=== PATIENT | female | born 1975 | race American Indian/Alaskan Native ===

== ENCOUNTER 2020-10-01 15:57 | Inpatient (IN) | payer MEDICARE ==
--- NOTE | 2020-10-01 18:41 | Event Note ---
ED Screening Note ED Screening Note: pt presents for CP that radiates to the back that began 4 days ago +SOB +pleuritic pain +cough with mucus production +v/d no leg swelling no COVID 19 vaccine mother is positive for COVID PMHx SBO, arthritis no allergies to meds LNMP: currently non smoker This initial assessment/diagnostic orders/clinical plan/treatment(s) is/are subject to change based on patients health status, clinical progression and re- assessment by fellow clinical providers in the ED. Further treatment and workup at subsequent clinical providers discretion. Patient/guardian urged not to elope from the ED as their condition may be serious if not clinically assessed and managed. Initial orders include: labs, ekg, xr
[2020-10-01 18:43] LABS: Bacteria,Urine 1+ /HPF (Negative); Bilirubin,Urine NEG (Negative); Blood,Urine LG (Negative); Color,Urine Amber (Yellow); Hyaline Casts,Urine 1 /LPF; Mucus,Urine 3+ /HPF
--- NOTE | 2020-10-01 19:21 | XRay Report ---
CHEST PA AND LATERAL VIEWS INDICATION: cough, SOB, CP. COMPARISON: None. FINDINGS: Support devices: None. Heart: Within normal limits. Lungs/Pleura: There are mild patchy airspace opacities in the mid to lower lungs bilaterally. No pleu ral abnormality. IMPRESSION: 1. Mild bilateral airspace disease is concerning for viral pneumonia. Signer Name: Jevon Neff MD Signed: 10/01/2020 7:17 PM Workstation Name: [id number]
[2020-10-01 19:53] LABS: Basophils # (Auto) 0.1 K/mm3 (0.0-0.1); Eosinophils # (Auto) 0.1 K/mm3 (0.0-0.4); Eosinophils % (Auto) 1.6 % (0.0-4.3); Hematocrit 39.1 % (30.3-42.9); Hemoglobin 12.5 gm/dl (10.1-14.3); Lymphocytes # (Auto) 1.5 K/mm3 (1.2-5.4); Lymphocytes % (Auto) 24.8 % (13.4-35.0); Mean Corpuscular HGB Conc 32 % (30-34); Mean Corpuscular Volume 88 fl (79-97); Monocytes # (Auto) 0.6 K/mm3 (0.0-0.8); Monocytes % (Auto) 10.1 % (0.0-7.3); Platelet Count 395 K/mm3 (140-440); Red Blood Count 4.43 M/mm3 (3.65-5.03); Red Cell Distribution Width 14.8 % (13.2-15.2)
[2020-10-01 20:09] LABS: Alanine Aminotransferase 23 units/L (7-56); Albumin 3.7 g/dL (3.9-5); Blood Urea Nitrogen 8 mg/dL (7-17); Calcium 9.2 mg/dL (8.4-10.2); Hemolysis Index 5
[2020-10-01 20:28] LABS: BUN/Creatinine Ratio 13
--- NOTE | 2020-10-01 23:38 | Emergency Department Report ---
- General Chief Complaint: Dyspnea/Respdistress Stated Complaint: CHEST PAIN, GABY PUI?: No Time Seen by Provider: 10/01/20 18:38 Source: patient Mode of arrival: Ambulatory Limitations: No Limitations - History of Present Illness Initial Comments: 45-year-old -Algerian female presents emerged department complaining of a few day history of cough congestion and coryza with mucus. Production is feverish sensation and difficulty breathing off and on. She reports no hemoptysis no hematemesis no hematochezia but has had positive contact with the coronavirus in the family. MD Complaint: fever, rhinorrhea, nasal congestion -: Gradual Quality: dull Consistency: constant Improves With: nothing Worsens With: nothing Associated Symptoms: chills, rhinorrhea, nasal congestion, cough. denies: chest pain, shortness of breath, vomiting, diarrhea, dysuria, confusion, right sweats, weight loss, epistaxis Treatments Prior to Arrival: none - Related Data Previous Rx's Medication Instructions Recorded Last Taken Type Ondansetron [Zofran ODT TAB] 4 mg PO Q8HR #20 tab.rapdis 11/01/14 Unknown Rx oxyCODONE /ACETAMINOPHEN [Percocet 1 tab PO Q6HR PRN #20 tablet 11/01/14 Unknown Rx 5/325] Albuterol Mdi (or & Nicu Only) 1 puff IH Q4-6H PRN #1 inha 10/01/20 Unknown Rx [ProAir HFA Inhaler] Benzonatate [Tessalon Perles] 100 mg PO Q8HR #20 capsule 10/01/20 Unknown Rx Ketorolac [Toradol] 10 mg PO Q6H PRN #15 tablet 10/01/20 Unknown Rx Allergies Allergy/AdvReac Type Severity Reaction Status Date / Time No Known Allergies Allergy Verified 10/01/20 16:20 ED Review of Systems ROS: Stated complaint: CHEST PAIN, GABY Other details as noted in HPI Comment: All other systems reviewed and negative ED Past Medical Hx - Surgical History Additional Surgical History: GASTRIC BYPASS 2001. . BOWEL OBSTRUCTION 2004 - Social History Smoking Status: Never Smoker Substance Use Type: None - Medications Home Medications: Home Medications Medication Instructions Recorded Confirmed Last Taken Type Ondansetron [Zofran ODT TAB] 4 mg PO Q8HR #20 tab.rapdis 11/01/14 Unknown Rx oxyCODONE /ACETAMINOPHEN [Percocet 1 tab PO Q6HR PRN #20 tablet 11/01/14 Unknown Rx 5/325] Albuterol Mdi (or & Nicu Only) 1 puff IH Q4-6H PRN #1 inha 10/01/20 Unknown Rx [ProAir HFA Inhaler] Benzonatate [Tessalon Perles] 100 mg PO Q8HR #20 capsule 10/01/20 Unknown Rx Ketorolac [Toradol] 10 mg PO Q6H PRN #15 tablet 10/01/20 Unknown Rx ED Physical Exam - General Limitations: No Limitations General appearance: alert, in no apparent distress - Head Head exam: Present: atraumatic, normocephalic - Eye Eye exam: Present: normal appearance, PERRL Pupils: Present: normal accommodation - ENT ENT exam: Present: normal exam, normal orophraynx, mucous membranes moist, TM's normal bilaterally - Neck Neck exam: Present: normal inspection, full ROM - Respiratory Respiratory exam: Present: normal lung sounds bilaterally, rhonchi. Absent: respiratory distress, wheezes, rales, chest wall tenderness, accessory muscle use - Cardiovascular Cardiovascular Exam: Present: regular rate, normal rhythm. Absent: systolic murmur, diastolic murmur, rubs, gallop - GI/Abdominal GI/Abdominal exam: Present: soft, normal bowel sounds - Bi-manual exam: Absent: normal bi-manual exam, cervical motion tendernes - Extremities Exam Extremities exam: Present: normal inspection, full ROM, tenderness, normal capillary refill. Absent: pedal edema, joint swelling - Back Exam Back exam: Present: normal inspection. Absent: CVA tenderness (R), CVA tenderness (L) - Neurological Exam Neurological exam: Present: alert, oriented X3, CN II-XII intact, normal gait - Psychiatric Psychiatric exam: Present: normal affect, normal mood - Skin Skin exam: Present: warm, dry, intact, normal color. Absent: rash ED Course Vital Signs 10/01/20 10/02/20 16:19 02:46 Temperature 98.6 F Pulse Rate 96 H Respiratory 16 Rate Blood Pressure 93/74 [Right] O2 Sat by Pulse 99 90 Oximetry ED Medical Decision Making - Lab Data Result diagrams: 10/01/20 19:18 10/01/20 19:18 - Radiology Data Radiology results: report reviewed [facility] [address] [place] [address] XRay Report Signed Patient: GISELL DELACRUZ MR#: [id number] : 1975 Acct:[id number] Age/Sex: 45 / F ADM Date: 10/01/20 Loc: ED Attending Dr: Ordering Physician: ROCIO HERNANDEZ Date of Service: 10/01/20 Procedure(s): XR chest routine 2V Accession Number(s): [id number] cc: ROCIO HERNANDEZ Fluoro Time In Minutes: CHEST PA AND LATERAL VIEWS INDICATION: cough, SOB, CP. COMPARISON: None. FINDINGS: Support devices: None. Heart: Within normal limits. Lungs/Pleura: There are mild patchy airspace opacities in the mid to lower lungs bilaterally. No pleural abnormality. IMPRESSION: 1. Mild bilateral airspace disease is concerning for viral pneumonia. Signer Name: Jevon Neff MD Signed: 10/01/2020 7:17 PM Workstation Name: [id number] Transcribed By: JULIETA Dictated By: Jevon Neff MD Electronically Authenticated By: Jevon Neff MD Signed Date/Time: 10/01/201916 DD/ 16 TD/TT: - Medical Decision Making 45-year-old female patient presentation suspicious for COVID-19 infection patient requires admission for the symptoms current Covid symptoms including ta chycardia, chest pain, shortness of breath, exertional dyspnea and exertional hypoxemia with a saturation decreasing to 91%. Chest x-ray also bilateral pneumonia of what appears to be a viral nature differential diagnosis includes other viral causes of lower respiratory tract infection, pneumonia, less likely PE, pneumothorax, primary cardiovascular causes, bacterial sepsis, other severe metabolic/ischemic derangements. Will swab for COVID-19 placed in hands precautions and admit to medicine. Critical care attestation.: If time is entered above; I have spent that time in minutes in the direct care of this critically ill patient, excluding procedure time. ED Disposition Clinical Impression: Viral syndrome, Suspected COVID-19 virus infection, Cough, Viral pneumonia, Exertional dyspnea, Hypoxemia, Pneumonia Disposition: OP ADMIT IP TO THIS HOSP Is pt being admited?: Yes Does the pt Need Aspirin: No Condition: Stable Instructions: Bacterial Pneumonia (ED) Prescriptions: Albuterol Mdi (or & Nicu Only) [ProAir HFA Inhaler] 1 puff IH Q4-6H PRN #1 inha PRN Reason: Cough Benzonatate [Tessalon Perles] 100 mg PO Q8HR #20 capsule Ketorolac [Toradol] 10 mg PO Q6H PRN #15 tablet PRN Reason: Pain
[2020-10-01] MEDS ORDERED: dexAMETHasone 4 MG/ML VIAL IM ONE (23:45)
[2020-10-02] MEDS ORDERED: dexAMETHasone 4 MG/ML VIAL IM ONE (02:00)
[2020-10-02] MEDS ORDERED: ALBUTEROL 2.5 MG/3 ML NEBU IH PRN (05:45)
[2020-10-02] MEDS ORDERED: ACETAMINOPHEN 325 MG TAB PO PRN (05:45)
[2020-10-02] MEDS ORDERED: hydrALAZINE 20 MG/1 ML INJ IV PRN (05:47)
--- NOTE | 2020-10-02 05:52 | History and Physical Report ---
History of Present Illness Date of examination: 10/02/20 Date of admission: 10/02/20 03:13 Chief complaint: Dyspnea Cough History of present illness: 45-year-old -Ethiopian female with no significant past medical history was brought to the emergency room because of a few day history of cough , shortness of breath, congestion and coryza with mucus. Production is feverish sensation and difficulty breathing off and on. Patient has positive contact with the coronavirus in the family In the emergency room patient chest x-ray shows bilateral pneumonia .patient has exertional dyspnea and exertional hypoxemia with a saturation decreasing to 91%. Medications and Allergies Allergies Allergy/AdvReac Type Severity Reaction Status Date / Time No Known Allergies Allergy Verified 10/01/20 16:20 Home Medications Medication Instructions Recorded Confirmed Last Taken Type Ondansetron [Zofran ODT TAB] 4 mg PO Q8HR #20 tab.rapdis 11/01/14 Unknown Rx oxyCODONE /ACETAMINOPHEN [Percocet 1 tab PO Q6HR PRN #20 tablet 11/01/14 Unknown Rx 5/325] Albuterol Mdi (or & Nicu Only) 1 puff IH Q4-6H PRN #1 inha 10/01/20 Unknown Rx [ProAir HFA Inhaler] Benzonatate [Tessalon Perles] 100 mg PO Q8HR #20 capsule 10/01/20 Unknown Rx Ketorolac [Toradol] 10 mg PO Q6H PRN #15 tablet 10/01/20 Unknown Rx Active Meds: Active Medications Acetaminophen (Acetaminophen 325 Mg Tab) 650 mg PO Q4H PRN PRN Reason: Pain MILD(1-3)/Fever >100.5/COLUNGA Albuterol (Albuterol 2.5 Mg/3 Ml Nebu) 2.5 mg IH Q4HRT PRN PRN Reason: Shortness Of Breath Albuterol/Ipratropium (Ipratropium/Albuterol Sulfate 3 Ml Ampul.Neb) 1 ampul IH Q6HRT MARGARET Famotidine (Famotidine 20 Mg Tab) 20 mg PO BID MARGARET Ondansetron HCl (Ondansetron 4 Mg/2 Ml Inj) 4 mg IV Q8H PRN PRN Reason: Nausea And Vomiting Oxycodone/Acetaminophen (Oxycodone /Acetaminophen 5-325mg Tab) 1 tab PO Q6H PRN PRN Reason: Pain, Moderate (4-6) Sodium Chloride (Sodium Chloride 0.9% 10 Ml Flush Syringe) 10 ml IV BID MARGARET Sodium Chloride (Sodium Chloride 0.9% 10 Ml Flush Syringe) 10 ml IV PRN PRN PRN Reason: LINE FLUSH Review of Systems Cardiovascular: shortness of breath, dyspnea on exertion Respiratory: cough, shortness of breath, dyspnea on exertion Exam - Constitutional Vitals: Temp Pulse Resp BP Pulse Ox 98.6 F 96 H 16 93/74 90 10/01/20 16:19 10/01/20 16:19 10/01/20 16:19 10/01/20 16:19 10/02/20 02:46 General appearance: Present: no acute distress, well-nourished - EENT Eyes: Present: PERRL ENT: hearing intact, clear oral mucosa - Neck Neck: Present: supple, normal ROM - Respiratory Respiratory effort: normal Respiratory: bilateral: diminished - Cardiovascular Heart Sounds: Present: S1 & S2. Absent: rub, click - Extremities Extremities: pulses symmetrical, No edema Peripheral Pulses: within normal limits - Abdominal General gastrointestinal: Present: soft, non-tender, non-distended, normal bowel sounds Female genitourinary: Present: normal - Integumentary Integumentary: Present: clear, warm, dry - Musculoskeletal Musculoskeletal: gait normal, strength equal bilaterally - Psychiatric Psychiatric: appropriate mood/affect, intact judgment & insight - Neurologic Neurologic: CNII-XII intact, moves all extremities HEART Score - HEART Score Troponin: Troponin T < 0.010 ng/mL (0.00-0.029) 10/01/20 19:18 Results - Labs CBC & Chem 7: 10/01/20 19:18 10/01/20 19:18 Labs: Laboratory Last Values WBC 6.0 K/mm3 (4.5-11.0) 10/01/20 19:18 RBC 4.43 M/mm3 (3.65-5.03) 10/01/20 19:18 Hgb 12.5 gm/dl (10.1-14.3) 10/01/20 19:18 Hct 39.1 % (30.3-42.9) 10/01/20 19:18 MCV 88 fl (79-97) 10/01/20 19:18 MCH 28 pg (28-32) 10/01/20 19:18 MCHC 32 % (30-34) 10/01/20 19:18 RDW 14.8 % (13.2-15.2) 10/01/20 19:18 Plt Count 395 K/mm3 (140-440) 10/01/20 19:18 Lymph % (Auto) 24.8 % (13.4-35.0) 10/01/20 19:18 [place] % (Auto) 10.1 % (0.0-7.3) H 10/01/20 19:18 Eos % (Auto) 1.6 % (0.0-4.3) 10/01/20 19:18 Baso % (Auto) 1.0 % (0.0-1.8) 10/01/20 19:18 Lymph # (Auto) 1.5 K/mm3 (1.2-5.4) 10/01/20 19:18 [place] # (Auto) 0.6 K/mm3 (0.0-0.8) 10/01/20 19:18 Eos # (Auto) 0.1 K/mm3 (0.0-0.4) 10/01/20 19:18 Baso # (Auto) 0.1 K/mm3 (0.0-0.1) 10/01/20 19:18 Seg Neutrophils % 62.5 % (40.0-70.0) 10/01/20 19:18 Seg Neutrophils # 3.7 K/mm3 (1.8-7.7) 10/01/20 19:18 D-Dimer 179.06 ng/mlDDU (0-234) 10/01/20 19:18 Sodium 141 mmol/L (137-145) 10/01/20 19:18 Potassium 3.9 mmol/L (3.6-5.0) 10/01/20 19:18 Chloride 100.1 mmol/L (98-107) 10/01/20 19:18 Carbon Dioxide 32 mmol/L (22-30) H 10/01/20 19:18 Anion Gap 13 mmol/L 10/01/20 19:18 BUN 8 mg/dL (7-17) 10/01/20 19:18 Creatinine 0.6 mg/dL (0.6-1.2) 10/01/20 19:18 Estimated GFR > 60 ml/min 10/01/20 19:18 BUN/Creatinine Ratio 13 % 10/01/20 19:18 Glucose 97 mg/dL (65-100) 10/01/20 19:18 Calcium 9.2 mg/dL (8.4-10.2) 10/01/20 19:18 Total Bilirubin 0.20 mg/dL (0.1-1.2) 10/01/20 19:18 AST 23 units/L (5-40) 10/01/20 19:18 ALT 23 units/L (7-56) 10/01/20 19:18 Alkaline Phosphatase 168 units/L (35-129) H 10/01/20 19:18 Troponin T < 0.010 ng/mL (0.00-0.029) 10/01/20 19:18 NT-Pro-B Natriuret Pep 62.35 pg/mL (0-450) 10/01/20 19:18 Total Protein 7.5 g/dL (6.3-8.2) 10/01/20 19:18 Albumin 3.7 g/dL (3.9-5) L 10/01/20 19:18 Albumin/Globulin Ratio 1.0 % 10/01/20 19:18 Urine Color Jade (Yellow) 10/01/20 Unknown Urine Turbidity Slightly-cloudy (Clear) 10/01/20 Unknown Urine pH 6.0 (5.0-7.0) 10/01/20 Unknown Ur Specific [place] 1.018 (1.003-1.030) 10/01/20 Unknown Urine Protein 30 mg/dl mg/dL (Negative) 10/01/20 Unknown Urine Glucose (UA) Neg mg/dL (Negative) 10/01/20 Unknown Urine Ketones Neg mg/dL (Negative) 10/01/20 Unknown Urine Blood Lg (Negative) 10/01/20 Unknown Urine Nitrite Neg (Negative) 10/01/20 Unknown Urine Bilirubin Neg (Negative) 10/01/20 Unknown Urine Urobilinogen 4.0 mg/dL (<2.0) 10/01/20 Unknown Ur Leukocyte Esterase Sm (Negative) 10/01/20 Unknown Urine WBC (Auto) 25.0 /HPF (0.0-6.0) H 10/01/20 Unknown Urine RBC (Auto) 8.0 /HPF (0.0-6.0) 10/01/20 Unknown U Epithel Cells (Auto) 10.0 /HPF (0-13.0) 10/01/20 Unknown Urine Bacteria (Auto) 1+ /HPF (Negative) 10/01/20 Unknown Hyaline Casts 1 /LPF 10/01/20 Unknown Urine Mucus 3+ /HPF 10/01/20 Unknown - Imaging and Cardiology Chest x-ray: report reviewed Assessment and Plan VTE prophylaxis?: Chemical Plan of care discussed with patient/family: Yes - Patient Problems (1) Suspected COVID-19 virus infection Current Visit: Yes Status: Acute Plan to address problem: Admit the patient to the medical floor. DuoNeb by nebulizer every 4 hours. Albuterol via nebulizer every 4 hours as needed. Rocephin 2 g IV daily and Zithromax 500 IV daily dexamethasone 6 mg IV daily . We will do the blood cultures sputum culture. Consult infectious disease if needed (2) Viral pneumonia Current Visit: Yes Status: Acute Plan to address problem: DuoNeb by nebulizer every 4 hours. Albuterol via nebulizer every 4 hours as needed. Rocephin 2 g IV daily and Zithromax 500 IV daily dexamethasone 6 mg IV daily . We will do the blood cultures sputum culture. Consult infectious disease if needed (3) Cough Current Visit: Yes Status: Acute Plan to address problem: DuoNeb by nebulizer every 4 hours as needed. Robitussin 10 mL p.o. every 6 8 hours as needed (4) DVT prophylaxis Current Visit: Yes Status: Acute Plan to address problem: Heparin 5000 units subcu every 8 hours for DVT prophylaxis. Pepcid 20 mg p.o. twice daily for GI prophylaxis. Patient is a full code
[2020-10-02] MEDS: cefTRIAXone/NS 2 GM/100 ML 2 GM/100 ML BAG IV SCH (06:53)
[2020-10-02] MEDS: AZITHROMYCIN/NS 500 MG/250 ML 500 MG/250 ML BAG IV SCH (08:07)
[2020-10-02] MEDS: ONDANSETRON 4 MG/2 ML INJ IV PRN (08:19)
--- NOTE | 2020-10-02 10:12 | Progress Note ---
Assessment and Plan Assessment and plan: --Suspected COVID-19 virus infection Current Visit: Yes Status: Acute Isolation precautions, saunders PCR test ordered Closely monitor supportive care --Viral pneumonia/possible COVID-19 pneumonia Current Visit: Yes Status: Acute Follow-up saunders PCR, empiric antibiotics Follow cultures, oxygen titrate O2 sats more than 90% -- Cough/acute bronchitis Current Visit: Yes Status: Acute Cough medicine, empiric antibiotics Oxygen --obesity; BMI 33.2 Patient needs weight reduction and medically stable --DVT prophylaxis Current Visit: Yes Status: Acute Heparin 5000 units subcu every 8 hours for DVT prophylaxis. Pepcid 20 mg p.o. twice daily for GI prophylaxis. Patient is a full code We will follow PCR test If positive consult ID Follow-up procalcitonin levels Closely monitor the patient and adjust the management as needed Advance care plan 35 minutes History Interval history: I seen and examined the patient at the bedside Isolation precautions and PPE protocol strictly followed Admitted as PUI, saunders PCR test pending Patient is obese in mild distress Vital signs noted Hospitalist Physical - Constitutional Vitals: Temp Pulse Resp BP Pulse Ox 98.2 F 56 L 16 125/80 98 10/02/20 09:11 10/02/20 09:11 10/02/20 09:11 10/02/20 09:11 10/02/20 09:11 General appearance: Present: mild distress, well-nourished, obese - EENT ENT: other (Did not examine to prevent disease transmission) - Neck Neck: Present: other (Prevent disease transmission) - Respiratory Respiratory effort: other (Not done to prevent disease transmission) - Extremities Extremity abnormal: other (Not done to prevent disease transmission) - Abdominal General gastrointestinal: other (Examination not done to prevent disease transmission) - Psychiatric Psychiatric: other (Examination not done to prevent disease transmission) - Neurologic Neurologic: other (Examination not done to prevent disease transmission) HEART Score - HEART Score Troponin: Troponin T < 0.010 ng/mL (0.00-0.029) 10/01/20 19:18 Results - Labs CBC & Chem 7: 10/01/20 19:18 10/01/20 19:18 Labs: Laboratory Last Values WBC 6.0 K/mm3 (4.5-11.0) 10/01/20 19:18 RBC 4.43 M/mm3 (3.65-5.03) 10/01/20 19:18 Hgb 12.5 gm/dl (10.1-14.3) 10/01/20 19:18 Hct 39.1 % (30.3-42.9) 10/01/20 19:18 MCV 88 fl (79-97) 10/01/20 19:18 MCH 28 pg (28-32) 10/01/20 19:18 MCHC 32 % (30-34) 10/01/20 19:18 RDW 14.8 % (13.2-15.2) 10/01/20 19:18 Plt Count 395 K/mm3 (140-440) 10/01/20 19:18 Lymph % (Auto) 24.8 % (13.4-35.0) 10/01/20 19:18 [place] % (Auto) 10.1 % (0.0-7.3) H 10/01/20 19:18 Eos % (Auto) 1.6 % (0.0-4.3) 10/01/20 19:18 Baso % (Auto) 1.0 % (0.0-1.8) 10/01/20 19:18 Lymph # (Auto) 1.5 K/mm3 (1.2-5.4) 10/01/20 19:18 [place] # (Auto) 0.6 K/mm3 (0.0-0.8) 10/01/20 19:18 Eos # (Auto) 0.1 K/mm3 (0.0-0.4) 10/01/20 19:18 Baso # (Auto) 0.1 K/mm3 (0.0-0.1) 10/01/20 19:18 Seg Neutrophils % 62.5 % (40.0-70.0) 10/01/20 19:18 Seg Neutrophils # 3.7 K/mm3 (1.8-7.7) 10/01/20 19:18 D-Dimer 179.06 ng/mlDDU (0-234) 10/01/20 19:18 Sodium 141 mmol/L (137-145) 10/01/20 19:18 Potassium 3.9 mmol/L (3.6-5.0) 10/01/20 19:18 Chloride 100.1 mmol/L (98-107) 10/01/20 19:18 Carbon Dioxide 32 mmol/L (22-30) H 10/01/20 19:18 Anion Gap 13 mmol/L 10/01/20 19:18 BUN 8 mg/dL (7-17) 10/01/20 19:18 Creatinine 0.6 mg/dL (0.6-1.2) 10/01/20 19:18 Estimated GFR > 60 ml/min 10/01/20 19:18 BUN/Creatinine Ratio 13 % 10/01/20 19:18 Glucose 97 mg/dL (65-100) 10/01/20 19:18 Calcium 9.2 mg/dL (8.4-10.2) 10/01/20 19:18 Total Bilirubin 0.20 mg/dL (0.1-1.2) 10/01/20 19:18 AST 23 units/L (5-40) 10/01/20 19:18 ALT 23 units/L (7-56) 10/01/20 19:18 Alkaline Phosphatase 168 units/L (35-129) H 10/01/20 19:18 Troponin T < 0.010 ng/mL (0.00-0.029) 10/01/20 19:18 NT-Pro-B Natriuret Pep 62.35 pg/mL (0-450) 10/01/20 19:18 Total Protein 7.5 g/dL (6.3-8.2) 10/01/20 19:18 Albumin 3.7 g/dL (3.9-5) L 10/01/20 19:18 Albumin/Globulin Ratio 1.0 % 10/01/20 19:18 Urine Color Jade (Yellow) 10/01/20 Unknown Urine Turbidity Slightly-cloudy (Clear) 10/01/20 Unknown Urine pH 6.0 (5.0-7.0) 10/01/20 Unknown Ur Specific [place] 1.018 (1.003-1.030) 10/01/20 Unknown Urine Protein 30 mg/dl mg/dL (Negative) 10/01/20 Unknown Urine Glucose (UA) Neg mg/dL (Negative) 10/01/20 Unknown Urine Ketones Neg mg/dL (Negative) 10/01/20 Unknown Urine Blood Lg (Negative) 10/01/20 Unknown Urine Nitrite Neg (Negative) 10/01/20 Unknown Urine Bilirubin Neg (Negative) 10/01/20 Unknown Urine Urobilinogen 4.0 mg/dL (<2.0) 10/01/20 Unknown Ur Leukocyte Esterase Sm (Negative) 10/01/20 Unknown Urine WBC (Auto) 25.0 /HPF (0.0-6.0) H 10/01/20 Unknown Urine RBC (Auto) 8.0 /HPF (0.0-6.0) 10/01/20 Unknown U Epithel Cells (Auto) 10.0 /HPF (0-13.0) 10/01/20 Unknown Urine Bacteria (Auto) 1+ /HPF (Negative) 10/01/20 Unknown Hyaline Casts 1 /LPF 10/01/20 Unknown Urine Mucus 3+ /HPF 10/01/20 Unknown Active Medications - Current Medications Current Medications: Generic Name Dose Route Start Last Admin Trade Name Freq PRN Reason Stop Dose Admin Acetaminophen 650 mg 10/02/20 05:45 Acetaminophen 325 Mg Tab PO Q4H PRN Pain MILD(1-3)/Fever >100.5/COLUNGA Albuterol 2.5 mg 10/02/20 05:45 Albuterol 2.5 Mg/3 Ml Nebu IH Q4HRT PRN Shortness Of Breath Albuterol/Ipratropium 1 ampul 10/02/20 08:00 Ipratropium/Albuterol Sulfate 3 Ml Ampul.Neb IH Q6HRT [facility] Dexamethasone 6 mg 10/02/20 12:00 Dexamethasone 4 Mg/Ml Vial IV 10/11/20 10:01 DAILY [facility] Famotidine 20 mg 10/02/20 10:00 Famotidine 20 Mg Tab PO BID [facility] Guaifenesin 200 mg 10/02/20 05:54 Guaifenesin 100 Mg/5 Ml Oral Liqd PO Q4H PRN Cough Heparin Sodium (Porcine) 5,000 unit 10/02/20 06:00 Heparin 5,000 Unit/1 Ml Vial SUB-Q Q8HR [facility] Hydralazine HCl 10 mg 10/02/20 05:47 Hydralazine 20 Mg/1 Ml Inj IV Q6H PRN Blood Pressure Hydromorphone HCl 0.5 mg 10/02/20 05:45 Hydromorphone 1 Mg/1 Ml Inj IV Q3H PRN Pain , Severe (7-10) Ceftriaxone Sodium 2 gm in 100 mls @ 200 mls/hr 10/02/20 06:00 10/02/20 06:53 Rocephin/Ns 2 Gm/100 Ml IV 10/06/20 06:29 200 mls/hr Q24H MARGARET Administration Protocol Azithromycin 500 mg in 250 mls @ 250 mls/hr 10/02/20 06:00 10/02/20 08:07 Zithromax/Ns IV 10/06/20 06:59 250 mls/hr Q24H MARGARET Administration Protocol Ondansetron HCl 4 mg 10/02/20 05:45 10/02/20 08:19 Ondansetron 4 Mg/2 Ml Inj IV 4 mg Q8H PRN Administration Nausea And Vomiting Oxycodone/Acetaminophen 1 tab 10/02/20 05:45 Oxycodone /Acetaminophen 5-325mg Tab PO Q6H PRN Pain, Moderate (4-6) Sodium Chloride 10 ml 10/02/20 10:00 Sodium Chloride 0.9% 10 Ml Flush Syringe IV BID MARGARET Sodium Chloride 10 ml 10/02/20 05:45 Sodium Chloride 0.9% 10 Ml Flush Syringe IV PRN PRN LINE FLUSH
[2020-10-02] MEDS: HYDROmorphone 1 MG/1 ML INJ IV PRN ×2 (14:54→21:06)
[2020-10-02] MEDS: HEPARIN 5,000 UNIT/1 ML VIAL SUB-Q SCH ×3 (14:55→23:10)
[2020-10-02] MEDS: dexAMETHasone 4 MG/ML VIAL IV SCH (14:56)
[2020-10-02] MEDS: IPRATROPIUM/ALBUTEROL SULFATE 3 ML AMPUL.NEB IH SCH ×2 (20:05→23:10)
[2020-10-02] MEDS: FAMOTIDINE 20 MG TAB PO SCH ×2 (20:06→23:10)
[2020-10-02] MEDS ORDERED: dexAMETHasone 4 MG/ML VIAL IV SCH (22:00)
[2020-10-03] MEDS: IPRATROPIUM/ALBUTEROL SULFATE 3 ML AMPUL.NEB IH SCH ×4 (02:06→21:59)
[2020-10-03] MEDS: oxyCODONE /ACETAMINOPHEN 5-325MG TAB PO PRN ×3 (02:15→18:06)
[2020-10-03 05:15] LABS: Basophils # (Auto) 0.1 K/mm3 (0.0-0.1); Basophils % (Auto) 0.5 % (0.0-1.8); Hematocrit 34.9 % (30.3-42.9); Hemoglobin 11.1 gm/dl (10.1-14.3); Mean Corpuscular HGB Conc 32 % (30-34); Mean Corpuscular Volume 89 fl (79-97); Monocytes # (Auto) 0.7 K/mm3 (0.0-0.8); Monocytes % (Auto) 6.7 % (0.0-7.3); Platelet Count 384 K/mm3 (140-440); Red Blood Count 3.93 M/mm3 (3.65-5.03); Red Cell Distribution Width 14.3 % (13.2-15.2)
[2020-10-03 05:20] LABS: Blood Urea Nitrogen 11 mg/dL (7-17); Calcium 9.1 mg/dL (8.4-10.2); Hemolysis Index 2
[2020-10-03 05:31] LABS: BUN/Creatinine Ratio 18
[2020-10-03] MEDS: cefTRIAXone/NS 2 GM/100 ML 2 GM/100 ML BAG IV SCH (05:44)
[2020-10-03] MEDS: HEPARIN 5,000 UNIT/1 ML VIAL SUB-Q SCH ×3 (05:45→21:21)
[2020-10-03] MEDS: AZITHROMYCIN/NS 500 MG/250 ML 500 MG/250 ML BAG IV SCH (06:37)
--- NOTE | 2020-10-03 08:17 | Progress Note ---
Assessment and Plan Assessment and plan: --Hypokalemia; Current Visit: Yes Status: Acute Potassium 3.4, replenish per protocol Monitor electrolytes --COVID-19 infection Current Visit: Yes Status: Acute Kc PCR test positive 10/02/2020 continue contact and droplet isolation, patient is saturating well on room air, No indication for steroid /remdesivir at this point Closely monitor oxygen requirement Consult ID , Check inflammatory markers, prone positioning, home O2 evaluation Supportive meds zinc, vitamin C, vitamin D3 --Viral pneumonia/possible COVID-19 pneumonia Current Visit: Yes Status: Acute Empiric antibiotics Rocephin and Zithromax Check procalcitonin, if normal range will DC antibiotics Follow cultures, -- Cough/acute bronchitis Current Visit: Yes Status: Acute Cough medicine, empiric antibiotics,Oxygen if needed As needed bronchodilators --Obesity; BMI 33.2 Current Visit: Yes Status: Chronic Patient needs weight reduction and medically stable --DVT prophylaxis--GI prophylaxis Current Visit: Yes Status: Acute Heparin 5000 units subcu every 8 hours We will closely monitor the patient and adjust management as needed Plan of care reviewed with the patient and her nurse Follow ID evaluation recommendations History Interval history: Seen and examined the patient at the bedside Strict isolation precautions and PPE protocols followed per COVID-19 guidelines throughout my evaluation of this patient Patient feels slightly better no new complaints Saturating well on room air Vital signs stable Hospitalist Physical - Constitutional Vitals: Temp Pulse Resp BP Pulse Ox 98.2 F 59 L 15 128/85 97 10/02/20 09:11 10/03/20 05:59 10/03/20 05:59 10/03/20 05:59 10/03/20 05:59 General appearance: Present: mild distress, well-nourished, obese - EENT Eyes: Present: PERRL, EOM intact - Neck Neck: Present: supple, normal ROM - Respiratory Respiratory effort: normal Respiratory: bilateral: diminished, rhonchi, negative: rales, wheezing - Cardiovascular Rhythm: regular Heart Sounds: Present: S1 & S2 - Extremities Extremities: no ischemia, No edema - Abdominal General gastrointestinal: soft, non-tender, non-distended - Integumentary Integumentary: Present: clear, warm - Psychiatric Psychiatric: appropriate mood/affect, cooperative - Neurologic Neurologic: CNII-XII intact, moves all extremities HEART Score - HEART Score Troponin: Troponin T < 0.010 ng/mL (0.00-0.029) 10/01/20 19:18 Results - Labs CBC & Chem 7: 10/03/20 04:06 10/03/20 04:06 Labs: Laboratory Last Values WBC 11.1 K/mm3 (4.5-11.0) H 10/03/20 04:06 RBC 3.93 M/mm3 (3.65-5.03) 10/03/20 04:06 Hgb 11.1 gm/dl (10.1-14.3) 10/03/20 04:06 Hct 34.9 % (30.3-42.9) 10/03/20 04:06 MCV 89 fl (79-97) 10/03/20 04:06 MCH 28 pg (28-32) 10/03/20 04:06 MCHC 32 % (30-34) 10/03/20 04:06 RDW 14.3 % (13.2-15.2) 10/03/20 04:06 Plt Count 384 K/mm3 (140-440) 10/03/20 04:06 Lymph % (Auto) 9.0 % (13.4-35.0) L 10/03/20 04:06 [place] % (Auto) 6.7 % (0.0-7.3) 10/03/20 04:06 Eos % (Auto) 0.0 % (0.0-4.3) 10/03/20 04:06 Baso % (Auto) 0.5 % (0.0-1.8) 10/03/20 04:06 Lymph # (Auto) 1.0 K/mm3 (1.2-5.4) L 10/03/20 04:06 [place] # (Auto) 0.7 K/mm3 (0.0-0.8) 10/03/20 04:06 Eos # (Auto) 0.0 K/mm3 (0.0-0.4) 10/03/20 04:06 Baso # (Auto) 0.1 K/mm3 (0.0-0.1) 10/03/20 04:06 Seg Neutrophils % 83.8 % (40.0-70.0) H 10/03/20 04:06 Seg Neutrophils # 9.3 K/mm3 (1.8-7.7) H 10/03/20 04:06 D-Dimer 179.06 ng/mlDDU (0-234) 10/01/20 19:18 Sodium 141 mmol/L (137-145) 10/03/20 04:06 Potassium 3.4 mmol/L (3.6-5.0) L 10/03/20 04:06 Chloride 101.4 mmol/L (98-107) 10/03/20 04:06 Carbon Dioxide 28 mmol/L (22-30) 10/03/20 04:06 Anion Gap 15 mmol/L 10/03/20 04:06 BUN 11 mg/dL (7-17) 10/03/20 04:06 Creatinine 0.6 mg/dL (0.6-1.2) 10/03/20 04:06 Estimated GFR > 60 ml/min 10/03/20 04:06 BUN/Creatinine Ratio 18 % 10/03/20 04:06 Glucose 192 mg/dL (65-100) H 10/03/20 04:06 Calcium 9.1 mg/dL (8.4-10.2) 10/03/20 04:06 Total Bilirubin 0.20 mg/dL (0.1-1.2) 10/01/20 19:18 AST 23 units/L (5-40) 10/01/20 19:18 ALT 23 units/L (7-56) 10/01/20 19:18 Alkaline Phosphatase 168 units/L (35-129) H 10/01/20 19:18 Troponin T < 0.010 ng/mL (0.00-0.029) 10/01/20 19:18 NT-Pro-B Natriuret Pep 62.35 pg/mL (0-450) 10/01/20 19:18 Total Protein 7.5 g/dL (6.3-8.2) 10/01/20 19:18 Albumin 3.7 g/dL (3.9-5) L 10/01/20 19:18 Albumin/Globulin Ratio 1.0 % 10/01/20 19:18 Urine Color Jade (Yellow) 10/01/20 Unknown Urine Turbidity Slightly-cloudy (Clear) 10/01/20 Unknown Urine pH 6.0 (5.0-7.0) 10/01/20 Unknown Ur Specific [place] 1.018 (1.003-1.030) 10/01/20 Unknown Urine Protein 30 mg/dl mg/dL (Negative) 10/01/20 Unknown Urine Glucose (UA) Neg mg/dL (Negative) 10/01/20 Unknown Urine Ketones Neg mg/dL (Negative) 10/01/20 Unknown Urine Blood Lg (Negative) 10/01/20 Unknown Urine Nitrite Neg (Negative) 10/01/20 Unknown Urine Bilirubin Neg (Negative) 10/01/20 Unknown Urine Urobilinogen 4.0 mg/dL (<2.0) 10/01/20 Unknown Ur Leukocyte Esterase Sm (Negative) 10/01/20 Unknown Urine WBC (Auto) 25.0 /HPF (0.0-6.0) H 10/01/20 Unknown Urine RBC (Auto) 8.0 /HPF (0.0-6.0) 10/01/20 Unknown U Epithel Cells (Auto) 10.0 /HPF (0-13.0) 10/01/20 Unknown Urine Bacteria (Auto) 1+ /HPF (Negative) 10/01/20 Unknown Hyaline Casts 1 /LPF 10/01/20 Unknown Urine Mucus 3+ /HPF 10/01/20 Unknown Coronavirus (PCR) Positive (Negative) A 10/02/20 09:50 Active Medications - Current Medications Current Medications: Generic Name Dose Route Start Last Admin Trade Name Freq PRN Reason Stop Dose Admin Acetaminophen 650 mg 10/02/20 05:45 Acetaminophen 325 Mg Tab PO Q4H PRN Pain MILD(1-3)/Fever >100.5/COLUNGA Albuterol 2.5 mg 10/02/20 05:45 Albuterol 2.5 Mg/3 Ml Nebu IH Q4HRT PRN Shortness Of Breath Albuterol/Ipratropium 1 ampul 10/02/20 08:00 10/03/20 02:06 Ipratropium/Albuterol Sulfate 3 Ml Ampul.Neb IH Not Given Q6HRT MARGARET Dexamethasone 6 mg 10/02/20 12:00 10/02/20 14:56 Dexamethasone 4 Mg/Ml Vial IV 10/11/20 10:01 6 mg DAILY MARGARET Administration Famotidine 20 mg 10/02/20 10:00 10/02/20 23:10 Famotidine 20 Mg Tab PO 20 mg BID MARGARET Administration Guaifenesin 200 mg 10/02/20 05:54 Guaifenesin 100 Mg/5 Ml Oral Liqd PO Q4H PRN Cough Heparin Sodium (Porcine) 5,000 unit 10/02/20 06:00 10/03/20 05:45 Heparin 5,000 Unit/1 Ml Vial SUB-Q 5,000 unit Q8HR MARGARET Administration Hydralazine HCl 10 mg 10/02/20 05:47 Hydralazine 20 Mg/1 Ml Inj IV Q6H PRN Blood Pressure Hydromorphone HCl 0.5 mg 10/02/20 05:45 10/02/20 21:06 Hydromorphone 1 Mg/1 Ml Inj IV 0.5 mg Q3H PRN Administration Pain , Severe (7-10) Ceftriaxone Sodium 2 gm in 100 mls @ 200 mls/hr 10/02/20 06:00 10/03/20 05:44 Rocephin/Ns 2 Gm/100 Ml IV 10/06/20 06:29 200 mls/hr Q24H MARGARET Administration Protocol Azithromycin 500 mg in 250 mls @ 250 mls/hr 10/02/20 06:00 10/03/20 06:37 Zithromax/Ns IV 10/06/20 06:59 250 mls/hr Q24H MARGARET Administration Protocol Ondansetron HCl 4 mg 10/02/20 05:45 10/02/20 08:19 Ondansetron 4 Mg/2 Ml Inj IV 4 mg Q8H PRN Administration Nausea And Vomiting Oxycodone/Acetaminophen 1 tab 10/02/20 05:45 10/03/20 04:10 Oxycodone /Acetaminophen 5-325mg Tab PO 1 tab Q6H PRN Administration Pain, Moderate (4-6) Sodium Chloride 10 ml 10/02/20 10:00 10/02/20 23:11 Sodium Chloride 0.9% 10 Ml Flush Syringe IV 10 ml BID MARGARET Administration Sodium Chloride 10 ml 10/02/20 05:45 Sodium Chloride 0.9% 10 Ml Flush Syringe IV PRN PRN LINE FLUSH
--- NOTE | 2020-10-03 09:13 | Electrocardiograph Report ---
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
[2020-10-03 11:18] LABS: C-Reactive Protein 0.7 mg/dL (0.00-1.30)
[2020-10-03] MEDS: ASCORBIC ACID 500 MG TAB PO SCH ×2 (11:29→21:21)
[2020-10-03] MEDS: guaiFENesin 100 MG/5 ML ORAL LIQD PO PRN ×3 (11:29→21:21)
[2020-10-03] MEDS: CHOLECALCIFEROL (VIT D3) 5,000 UNIT TAB PO SCH (11:29)
[2020-10-03] MEDS: FAMOTIDINE 20 MG TAB PO SCH ×2 (11:29→21:21)
[2020-10-03] MEDS: ZINC SULFATE 220 MG CAP PO SCH ×2 (11:30→21:21)
[2020-10-03] MEDS: dexAMETHasone 4 MG/ML VIAL IV SCH (11:30)
[2020-10-03] MEDS: HYDROmorphone 1 MG/1 ML INJ IV PRN ×2 (11:34→21:22)
--- NOTE | 2020-10-03 12:59 | Consultation ---
History of Present Illness - Reason for Consult Consult date: 10/03/20 - History of Present Illness 45-year-old female no past medical history brought to the hospital complaining of cough, shortness of breath. She complains of subjective fevers at home, and notes positive exposure to Covid with her family. Afebrile since admission with a white count 11.1. Covid positive. Normal renal function. Pending procalcitonin. Normal inflammatory markers. Currently on ceftriaxone and azithromycin with dexamethasone. On 2 L nasal cannula. Imaging personally reviewed: Chest x-ray: Mild bilateral airspace disease Review of systems: Deferred to reduce to the risk of transmission of COVID-19 Past History Past Medical History: other (See HPI) Past Surgical History: No surgical history Social history: no significant social history Family history: no significant family history Medications and Allergies Allergies Allergy/AdvReac Type Severity Reaction Status Date / Time No Known Allergies Allergy Verified 10/01/20 16:20 Home Medications Medication Instructions Recorded Confirmed Last Taken Type Ondansetron [Zofran ODT TAB] 4 mg PO Q8HR #20 tab.rapdis 11/01/14 Unknown Rx oxyCODONE /ACETAMINOPHEN [Percocet 1 tab PO Q6HR PRN #20 tablet 11/01/14 Unknown Rx 5/325] Albuterol Mdi (or & Nicu Only) 1 puff IH Q4-6H PRN #1 inha 10/01/20 Unknown Rx [ProAir HFA Inhaler] Benzonatate [Tessalon Perles] 100 mg PO Q8HR #20 capsule 10/01/20 Unknown Rx Ketorolac [Toradol] 10 mg PO Q6H PRN #15 tablet 10/01/20 Unknown Rx Active Meds: Active Medications Acetaminophen (Acetaminophen 325 Mg Tab) 650 mg PO Q4H PRN PRN Reason: Pain MILD(1-3)/Fever >100.5/COLUNGA Albuterol (Albuterol 2.5 Mg/3 Ml Nebu) 2.5 mg IH Q4HRT PRN PRN Reason: Shortness Of Breath Albuterol/Ipratropium (Ipratropium/Albuterol Sulfate 3 Ml Ampul.Neb) 1 ampul IH Q6HRT MARGARET Last Admin: 10/03/20 09:37 Dose: 1 ampul Documented by: Ascorbic Acid (Ascorbic Acid 500 Mg Tab) 500 mg PO BID [facility] Last Admin: 10/03/20 11:29 Dose: 500 mg Documented by: Cholecalciferol (Cholecalciferol (Vit D3) 5,000 Unit Tab) 5,000 unit PO DAILY [facility] Last Admin: 10/03/20 11:29 Dose: 5,000 unit Documented by: Dexamethasone (Dexamethasone 4 Mg/Ml Vial) 6 mg IV DAILY [facility] Stop: 10/11/20 10:01 Last Admin: 10/03/20 11:30 Dose: 6 mg Documented by: Famotidine (Famotidine 20 Mg Tab) 20 mg PO BID [facility] Last Admin: 10/03/20 11:29 Dose: 20 mg Documented by: Guaifenesin (Guaifenesin 100 Mg/5 Ml Oral Liqd) 200 mg PO Q4H PRN PRN Reason: Cough Last Admin: 10/03/20 11:37 Dose: 200 mg Documented by: Heparin Sodium (Porcine) (Heparin 5,000 Unit/1 Ml Vial) 5,000 unit SUB-Q Q8HR S Last Admin: 10/03/20 05:45 Dose: 5,000 unit Documented by: Hydralazine HCl (Hydralazine 20 Mg/1 Ml Inj) 10 mg IV Q6H PRN PRN Reason: Blood Pressure Hydromorphone HCl (Hydromorphone 1 Mg/1 Ml Inj) 0.5 mg IV Q3H PRN PRN Reason: Pain , Severe (7-10) Last Admin: 10/03/20 11:34 Dose: 0.5 mg Documented by: Ceftriaxone Sodium (Rocephin/Ns 2 Gm/100 Ml) 2 gm in 100 mls @ 200 mls/hr IV Q24H [facility]; Protocol Stop: 10/06/20 06:29 Last Admin: 10/03/20 05:44 Dose: 200 mls/hr Documented by: Azithromycin (Zithromax/Ns) 500 mg in 250 mls @ 250 mls/hr IV Q24H [facility]; Protocol Stop: 10/06/20 06:59 Last Admin: 10/03/20 06:37 Dose: 250 mls/hr Documented by: Ondansetron HCl (Ondansetron 4 Mg/2 Ml Inj) 4 mg IV Q8H PRN PRN Reason: Nausea And Vomiting Last Admin: 10/02/20 08:19 Dose: 4 mg Documented by: Oxycodone/Acetaminophen (Oxycodone /Acetaminophen 5-325mg Tab) 1 tab PO Q6H PRN PRN Reason: Pain, Moderate (4-6) Last Admin: 10/03/20 04:10 Dose: 1 tab Documented by: Sodium Chloride (Sodium Chloride 0.9% 10 Ml Flush Syringe) 10 ml IV BID [facility] Last Admin: 10/03/20 11:30 Dose: 10 ml Documented by: Sodium Chloride (Sodium Chloride 0.9% 10 Ml Flush Syringe) 10 ml IV PRN PRN PRN Reason: LINE FLUSH Zinc Sulfate (Zinc Sulfate 220 Mg Cap) 220 mg PO BID [facility] Last Admin: 10/03/20 11:30 Dose: 220 mg Documented by: Physical Examination - Physical Exam Narrative exam: Physical exam deferred to reduce risk of transmission of COVID-19. Please refer to primary team's note. - Constitutional Vitals: Vital Signs Temp Pulse Resp BP Pulse Ox 98.2 F 53 L 10 L 128/85 98 10/02/20 09:11 10/03/20 08:00 10/03/20 11:34 10/03/20 05:59 10/03/20 09:37 Results - Labs CBC & Chem 7: 10/03/20 04:06 10/03/20 04:06 Labs: Abnormal lab results 10/02/20 10/03/20 10/03/20 Range/Units 09:50 04:06 04:06 WBC 11.1 H (4.5-11.0) K/mm3 Lymph % (Auto) 9.0 L (13.4-35.0) % Lymph # (Auto) 1.0 L (1.2-5.4) K/mm3 Seg Neutrophils % 83.8 H (40.0-70.0) % Seg Neutrophils # 9.3 H (1.8-7.7) K/mm3 Potassium 3.4 L (3.6-5.0) mmol/L Glucose 192 H (65-100) mg/dL Lactate Dehydrogenase (91-180) units/L Coronavirus (PCR) Positive A (Negative) 10/03/20 Range/Units 09:36 WBC (4.5-11.0) K/mm3 Lymph % (Auto) (13.4-35.0) % Lymph # (Auto) (1.2-5.4) K/mm3 Seg Neutrophils % (40.0-70.0) % Seg Neutrophils # (1.8-7.7) K/mm3 Potassium (3.6-5.0) mmol/L Glucose (65-100) mg/dL Lactate Dehydrogenase 359 H (91-180) units/L Coronavirus (PCR) (Negative) Assessment and Plan Cultures: Covid PCR: Positive A/P: 45-year-old female past medical history obesity admitted with COVID-19 pneumonia #COVID-19 pneumonia: Patient presented with a week of symptoms, chest x-ray with diffuse bilateral infiltrates, admission O2 sats 90% on room air. Inflammatory markers normal #Acute hypoxemic respiratory failure: Likely secondary to COVID-19 infection. Currently on 2 L nasal cannula #Obesity Recs: -Dexamethasone 6 mg IV/PO daily for 10 days -Remdesivir for 5 days. D1 of 5. Monitor liver function while receiving. -Obtain q48-72h inflammatory markers - ferritin, Ddimer, CRP, LDH -Continue ceftriaxone 2 gm IV qday and azithromycin 500 mg PO qday, if procalcitonin <0.25 ng/mL stop antibiotics -Anticoagulation per hospital protocol -Proning as able Recommend 6MWT prior to discharging. no need to complete remdesivir prior to discharge if improved. Thank you for the consult, we will continue to follow. MD Shan Garcia [facility] O: [phone] F: [phone]
[2020-10-03] MEDS: ONDANSETRON 4 MG/2 ML INJ IV PRN ×2 (14:29→21:22)
[2020-10-03] MEDS ORDERED: REMDESIVIR 200 MG in SODIUM CHLORIDE 0.9% 250ML 250 ML IV ONE (15:00)
[2020-10-04] MEDS: IPRATROPIUM/ALBUTEROL SULFATE 3 ML AMPUL.NEB IH SCH ×3 (01:20→15:08)
[2020-10-04] MEDS: ONDANSETRON 4 MG/2 ML INJ IV PRN ×4 (04:20→22:24)
[2020-10-04] MEDS: guaiFENesin 100 MG/5 ML ORAL LIQD PO PRN ×3 (04:20→22:24)
[2020-10-04] MEDS: HYDROmorphone 1 MG/1 ML INJ IV PRN ×3 (04:21→22:25)
[2020-10-04] MEDS: AZITHROMYCIN/NS 500 MG/250 ML 500 MG/250 ML BAG IV SCH (05:45)
[2020-10-04] MEDS: SODIUM CHLORIDE 0.9% 50 ML IVPB IV SCH ×2 (05:45→22:24)
[2020-10-04] MEDS: cefTRIAXone/NS 2 GM/100 ML 2 GM/100 ML BAG IV SCH (05:47)
[2020-10-04] MEDS: HEPARIN 5,000 UNIT/1 ML VIAL SUB-Q SCH ×3 (05:47→22:23)
--- NOTE | 2020-10-04 07:49 | Progress Note ---
Assessment and Plan -Hypokalemia; Current Visit: Yes Status: Acute Potassium 3.4, replenish per protocol Monitor electrolytes --COVID-19 infection Current Visit: Yes Status: Acute Weaned down to 3 L O2 today. Will walk anticipate discharge in a.m. Kc PCR test positive 10/02/2020 continue contact and droplet isolation, patient is saturating well on room air, No indication for steroid /remdesivir at this point Closely monitor oxygen requirement Consult ID , Check inflammatory markers, prone positioning, home O2 evaluation Supportive meds zinc, vitamin C, vitamin D3 --Viral pneumonia/possible COVID-19 pneumonia Current Visit: Yes Status: Acute Empiric antibiotics Rocephin and Zithromax Check procalcitonin, if normal range will DC antibiotics Follow cultures, -- Cough/acute bronchitis Current Visit: Yes Status: Acute Cough medicine, empiric antibiotics,Oxygen if needed As needed bronchodilators --Obesity; BMI 33.2 Current Visit: Yes Status: Chronic Patient needs weight reduction and medically stable --DVT prophylaxis--GI prophylaxis Current Visit: Yes Status: Acute Subjective Date of service: 10/04/20 Principal diagnosis: COVID-19 positive test (U07.1, COVID-19) with Acute Pneumonia (J12.89, O Interval history: Patient remains on [address] patient on walk test today. See if she can tolerate discharged with 3 L of oxygen. Anticipate discharge 1 to 2 days. Patient does feel much more comfortable better. Decreased coughing. Objective - Constitutional Vitals: Vital Signs - 12hr 10/03/20 10/03/20 10/03/20 21:00 21:14 22:00 Temperature 98.4 F Pulse Rate 61 Respiratory 20 19 Rate Blood Pressure 125/80 O2 Sat by Pulse 95 98 98 Oximetry 10/04/20 03:51 Temperature 97.8 F Pulse Rate 48 L Respiratory 18 Rate Blood Pressure 136/85 O2 Sat by Pulse 100 Oximetry General appearance: Present: no acute distress, well-nourished - EENT Eyes: PERRL, EOM intact ENT: hearing intact, clear oral mucosa Ears: bilateral: normal - Neck Neck: supple, normal ROM - Respiratory Respiratory effort: normal Respiratory: bilateral: CTA - Breasts Breasts: normal - Cardiovascular Rhythm: regular Heart Sounds: Present: S1 & S2. Absent: gallop, rub Extremities: pulses intact, No edema, normal color, Full ROM - Gastrointestinal General gastrointestinal: Present: soft, non-tender, non-distended, normal bowel sounds - Genitourinary Female genitourinary: normal - Integumentary Integumentary: clear, warm, dry - Musculoskeletal Musculoskeletal: 1, strength equal bilaterally - Neurologic Neurologic: moves all extremities - Psychiatric Psychiatric: memory intact, appropriate mood/affect, intact judgment & insight - Labs CBC & Chem 7: 10/03/20 04:06 10/04/20 07:51 Labs: Abnormal lab results 10/03/20 Range/Units 09:36 Lactate Dehydrogenase 359 H (91-180) units/L HEART Score - HEART Score Troponin: Troponin T < 0.010 ng/mL (0.00-0.029) 10/01/20 19:18
[2020-10-04] MEDS: FAMOTIDINE 20 MG TAB PO SCH ×2 (09:25→22:23)
[2020-10-04] MEDS: ZINC SULFATE 220 MG CAP PO SCH ×2 (09:25→22:23)
[2020-10-04] MEDS: ASCORBIC ACID 500 MG TAB PO SCH ×2 (09:25→22:23)
[2020-10-04] MEDS: oxyCODONE /ACETAMINOPHEN 5-325MG TAB PO PRN (09:25)
[2020-10-04] MEDS: CHOLECALCIFEROL (VIT D3) 5,000 UNIT TAB PO SCH (09:26)
[2020-10-04] MEDS: dexAMETHasone 4 MG/ML VIAL IV SCH (09:26)
[2020-10-04 09:54] LABS: Alanine Aminotransferase 98 units/L (7-56); Albumin 3.3 g/dL (3.9-5); Blood Urea Nitrogen 11 mg/dL (7-17); Calcium 8.5 mg/dL (8.4-10.2); Hemolysis Index 4
[2020-10-04 09:57] LABS: BUN/Creatinine Ratio 22
[2020-10-04] MEDS ORDERED: REMDESIVIR 100 MG in SODIUM CHLORIDE 0.9% 250ML 250 ML IV SCH (21:00)
[2020-10-04] MEDS ORDERED: traZODone 100 MG TAB PO SCH (22:00)
[2020-10-05 04:48] VITALS: BP 123/80
[2020-10-05] MEDS: HYDROmorphone 1 MG/1 ML INJ IV PRN ×2 (05:50→09:53)
[2020-10-05] MEDS: HEPARIN 5,000 UNIT/1 ML VIAL SUB-Q SCH ×2 (05:50→13:58)
[2020-10-05 07:39] LABS: Alanine Aminotransferase 68 units/L (7-56); Albumin 3.1 g/dL (3.9-5); Blood Urea Nitrogen 9 mg/dL (7-17); Calcium 8.9 mg/dL (8.4-10.2); Hemolysis Index 3
[2020-10-05 07:41] LABS: BUN/Creatinine Ratio 18
[2020-10-05] MEDS: IPRATROPIUM/ALBUTEROL SULFATE 3 ML AMPUL.NEB IH SCH (08:57)
[2020-10-05] MEDS: guaiFENesin 100 MG/5 ML ORAL LIQD PO PRN (09:52)
[2020-10-05] MEDS: FAMOTIDINE 20 MG TAB PO SCH (09:53)
[2020-10-05] MEDS: CHOLECALCIFEROL (VIT D3) 5,000 UNIT TAB PO SCH (09:53)
[2020-10-05] MEDS: ASCORBIC ACID 500 MG TAB PO SCH (09:53)
[2020-10-05] MEDS: dexAMETHasone 4 MG/ML VIAL IV SCH (09:53)
[2020-10-05] MEDS: ONDANSETRON 4 MG/2 ML INJ IV PRN (10:01)
[2020-10-05] MEDS: ZINC SULFATE 220 MG CAP PO SCH (10:02)
--- NOTE | 2020-10-05 13:34 | Discharge Summary ---
Providers - Providers Date of Admission: 10/02/20 03:13 Date of discharge: 10/05/20 Attending physician: VINEET YADAV 10/03/20 08:57 Consult to Physician [CONS] Routine Comment: Consulting Provider: TOMÁS VITALE Physician Instructions: Reason For Exam: COVID-19 positive Primary care physician: [employer] Hospitalization Condition: Good Pertinent studies: Covid walk test for 6 minutes. Stable with 3 L of oxygen. Disposition: 01 HOME / SELF CARE / HOMELESS Final Discharge Diagnosis (Prints w/discharge instructions): . COVID-19 positive test (U07.1, COVID-19) with Acute Pneumonia (J12.89, Other viral pneumonia). (If respiratory failure or sepsis present, add as separate assessment). . Time spent for discharge: COVID-19 positive test (U07.1, COVID-19) with Acute Pneumonia (J12.89, O - Discharge Diagnoses (1) Pneumonia Status: Acute (2) Viral pneumonia Status: Acute Comment: Patient defervesced well after receiving 6 mg dexamethasone. We will continue additional 4 days afterwards. Also remdesivir. Patient defervesced well. Stable for discharge with continue quarantine to complete 14 days. We have discussed 14 days with the patient. Core Measure Documentation - Palliative Care Palliative Care/ Comfort Measures: Not Applicable - Core Measures Any of the following diagnoses?: none Exam - Constitutional Vitals: Temp Pulse Resp BP Pulse Ox 98.2 F 60 18 123/80 100 10/05/20 03:44 10/05/20 03:44 10/05/20 03:44 10/05/20 03:44 10/05/20 09:00 General appearance: Present: no acute distress, well-nourished - EENT Eyes: Present: PERRL ENT: hearing intact, clear oral mucosa - Neck Neck: Present: supple, normal ROM - Respiratory Respiratory effort: normal Respiratory: bilateral: CTA - Cardiovascular Heart Sounds: Present: S1 & S2. Absent: rub, click - Extremities Extremities: pulses symmetrical, No edema Peripheral Pulses: within normal limits - Abdominal General gastrointestinal: Present: soft, non-tender, non-distended, normal bowel sounds Female genitourinary: Present: normal - Integumentary Integumentary: Present: clear, warm, dry - Musculoskeletal Musculoskeletal: gait normal, strength equal bilaterally - Psychiatric Psychiatric: appropriate mood/affect, intact judgment & insight - Neurologic Neurologic: CNII-XII intact, moves all extremities Plan Activity: advance as tolerated Weight Bearing Status: Full Weight Bearing Diet: regular Prescriptions: oxyCODONE /ACETAMINOPHEN [Percocet 5/325 mg] 1 tab PO Q6H PRN #14 tablet PRN Reason: Pain, Moderate (4-6) oxyCODONE /ACETAMINOPHEN [Percocet 5/325 mg] 1 tab PO Q6HR PRN #20 tablet PRN Reason: Pain Albuterol Mdi (or & Nicu Only) [ProAir HFA Inhaler] 1 puff IH Q4-6H PRN #1 inha PRN Reason: Cough Benzonatate [Tessalon Perles] 100 mg PO Q8HR #20 capsule Ketorolac [Toradol] 10 mg PO Q6H PRN #15 tablet PRN Reason: Pain Ascorbic Acid [Vitamin C] 500 mg PO BID #30 tablet Ondansetron [Zofran ODT TAB] 4 mg PO Q8HR #20 tab.nghia
[2020-10-05] MEDS: oxyCODONE /ACETAMINOPHEN 5-325MG TAB PO PRN (14:55)
== END 2020-10-05 16:10 | disposition home or self-care (01) | DRG 177 ==
LOC: ED 15:57 → 3A 10-02 03:13
PROVIDERS: ADMIT Hospitalist; ATTEND Internal Medicine
PROC: XW033E5 Introduction of Remdesivir Anti-infective into Peripheral Vein, Percutaneous Approach, New Technology Group 5 (ICD-10-PCS; principal; 2020-10-03)
DX: U07.1 COVID-19 (principal); J96.01 Acute respiratory failure with hypoxia; J12.82 Pneumonia due to coronavirus disease 2019; J20.9 Acute bronchitis, unspecified; E87.6 Hypokalemia; E66.9 Obesity, unspecified; Z68.33 Body mass index [BMI] 33.0-33.9, adult
CPT/HCPCS: 36415; 71046; 80048; 80053; 81001; 82728; 83615; 83880; 84145; 84484; 85025; 85379; 86140; 87086; 93005; 94640; 94760; G0378; J0456; J0696; J1100; J1170; J1644; J2405; J7050; U0003